=== PATIENT | female | born 1985 | race Caucasian/White ===

== ENCOUNTER 2017-08-07 11:12 | Emergency (ER) | payer OTHER ==
[~2017-08-07] VITALS: Ht 162.6 cm; Wt 49.9 kg
[2017-08-07 11:23] VITALS: BP 122/81
[2017-08-07] MEDS ORDERED: IBUPROFEN600 MG ORAL (12:32)
[2017-08-07 13:06] VITALS: BP 99/64
--- NOTE | 2017-08-13 06:48 | Emergency Room Report ---
History of Present Illness General Chief Complaint: Upper Extremity Injury Source: Patient Present Illness HPI This is a 32-year-old female presents after having increased temperature any pain. Patient had a chest pain with movement. She denies any fever. She reported increased pain after increased workout. She denied other trauma. She denied prior history of joint or muscle problems. Patient states that she had similar symptoms the opposite side which was less severe. Pain was worse with movement. Allergies: Coded Allergies: SULFA (SULFONAMIDE ANTIBIOTICS) (Verified Allergy, Unknown, 08/07/17) Uncoded Allergies: IV CONTRAST (Allergy, Unknown, 08/07/17) Patient History Past Medical History: see triage record Reviewed Nursing Documentation: PMH: Agreed, PSxH: Agreed Nursing Documentation-PMH Past Medical History: No Stated History Review of Systems All Other Systems: negative except mentioned in HPI Physical Exam Vital Signs Date Time Temp Pulse Resp B/P (MAP) Pulse Ox O2 Delivery O2 Flow Rate FiO2 08/07/17 11:17 97.3 59 20 122/81 99 Room Air General Appearance: well appearing, no apparent distress, alert, GCS 15, non- toxic Head: normocephalic, atraumatic ENT: hearing grossly normal, normal voice Neck: full range of motion, supple Respiratory: no respiratory distress, speaking full sentences Cardiovascular #1: normal inspection, normal peripheral pulses, regular rate, rhythm Musculoskeletal: normal inspection, no calf tenderness, other - limited ROM, muscle tenderness without erythema swelling or evident abscess Neurologic: normal inspection, alert, oriented x3, responsive, normal gait Psychiatric: mood/affect normal Skin: no rash Medical Decision Making Diagnostic Impression: Primary Impression: Muscle strain ER Course Patient presented for extremity pain. Differential diagnoses included was not limited to abscess, cellulitis, vascular injury, myositis, rhabdomyolysis among others. Patient's benign exam and does not appear to require any further imaging or laboratory testing at this time. The patient was a sling. The patient by mouth hydration as well as resting her upper extremity. Patient was advised to take her medicine playing and to perform range of motion exercises daily. The patient is advised to follow up with primary care doctor in 1-2 days. Patient is advised to return if any worsening condition or if any changes in status that are concerning. This report is dictated with [employer] roughing mill operator software which may occasionally lead to discrepancies related to use of this software. Last Vital Signs Date Time Temp Pulse Resp B/P (MAP) Pulse Ox O2 Delivery O2 Flow Rate FiO2 08/07/17 13:08 97.3 08/07/17 13:06 66 20 99/64 99 Room Air Status: improved Disposition: HOME, SELF-CARE Condition: Improved Scripts Ibuprofen* (MOTRIN*) 600 Mg Tablet 600 MG ORAL Q8H Y for For Pain, #30 TAB 0 Refills Prov: Rolan Patricio 08/07/17 Referrals: NON PHYSICIAN (PCP) Patient Instructions: Muscle Strain Rolan Patricio Aug 13, 2017 06:48
== END 2017-08-07 13:11 | disposition home or self-care (01) ==
LOC: EMR 12:45
DX: S29.011A Strain of muscle and tendon of front wall of thorax, initial encounter (principal); X58.XXXA Exposure to other specified factors, initial encounter; Y92.9 Unspecified place or not applicable
CPT/HCPCS: 99283